=== PATIENT | female | born 1970 | race American Indian/Alaskan Native ===

== ENCOUNTER 2020-01-25 12:36 | Emergency (ER) | payer MEDICAID ==
--- NOTE | 2020-01-25 13:04 | EDM.PDOC ---
<Mark Troy - Last Filed: 01/25/20 13:44> ED HPI GENERAL MEDICAL PROBLEM - General Chief Complaint: Gastrointestinal Problem Stated Complaint: discomfort Time Seen by Provider: 01/25/20 12:59 Source of Information: Reports: Patient, RN, RN Notes Reviewed History Limitations: Reports: No Limitations - History of Present Illness INITIAL COMMENTS - FREE TEXT/NARRATIVE: 49 year old female presents to the ER with complaints of external hemorrhoids, has had them for 6 months, today pain became so severe she came to the ER. She has been using OTC hemorrhoid creams and tuck pads but haven't completely taken them away. She states she has had hemorrhoids in the past while but went away after childbirth. She has had bleeding with every bowel movement with noticeable bright red blood in the toilet. She has not tried to manually reduce hemorrhoids because pain is so bad and she cannot lie on her back or sit comfortably in a chair. She has not tried increasing fiber in her diet or changing her diet during the 6 months she has been dealing with the hemorrhoids. She denies diarrhea or constipation. Onset: Gradual, Other (been getting worse over the last 6 months) Duration: Getting Worse Location: Reports: Pelvis (anus) Quality: Reports: Ache, Sharp Severity: Moderate Improves with: Reports: None Worsens with: Reports: Other (bowel movements) Associated Symptoms: Reports: No Other Symptoms - Related Data Allergies Allergy/AdvReac Type Severity Reaction Status Date / Time acetaminophen [From [place]] Allergy Other Verified 01/25/20 12:58 hydrocodone [From [place]] Allergy Other Verified 01/25/20 12:58 Home Meds: Home Meds . [No Known Home Meds] 01/25/20 [History] ED ROS GENERAL - Review of Systems Review Of Systems: Comprehensive ROS is negative, except as noted in HPI. ED EXAM, GI/ABD - Physical Exam Exam: See Below Exam Limited By: No Limitations General Appearance: Alert, WD/WN, Moderate Distress Respiratory/Chest: No Respiratory Distress, Lungs Clear, Normal Breath Sounds, No Accessory Muscle Use, Chest Non-Tender Cardiovascular: Normal Peripheral Pulses, Regular Rate, Rhythm, No Edema, No Gallop, No JVD, No Murmur, No Rub GI/Abdominal Exam: Normal Bowel Sounds, Soft, Non-Tender, No Organomegaly, No Distention, No Abnormal Bruit, No Mass, Pelvis Stable (Female) Exam: Deferred Rectal (Female) Exam: Hemorrhoids (external hemorrhoids), Tenderness Extremities: Normal Inspection, Normal Range of Motion, Non-Tender, Normal Capillary Refill, No Pedal Edema Neurological: Alert, Oriented, CN II-XII Intact, Normal Cognition, Normal Gait, Normal Reflexes, No Motor/Sensory Deficits Psychiatric: Normal Affect, Normal Mood Skin Exam: Warm, Dry, Intact, Normal Color, No Rash Course - Vital Signs Last Recorded V/S: Last Vital Signs Temp 37.1 C 01/25/20 12:54 Pulse 65 01/25/20 12:54 Resp 18 01/25/20 12:54 BP 141/58 H 01/25/20 12:54 Pulse Ox 99 01/25/20 12:54 Departure - Departure Time of Disposition: 14:00 Disposition: Home, Self-Care 01 Condition: Good Clinical Impression: External hemorrhoids - Discharge Information *PRESCRIPTION DRUG MONITORING PROGRAM REVIEWED*: Not Applicable *COPY OF PRESCRIPTION DRUG MONITORING REPORT IN PATIENT NAKUL: Not Applicable Instructions: High-Fiber Diet, Constipation, Adult, [id number], Hemorrhoids, [id number], Surgical Procedures for Hemorrhoids, Nonsurgical Procedures for Hemorrhoids, Care After Forms: ED Department Discharge Additional Instructions: Rx: Hydrocortisone suppository 25 mg Apply hydrocortisone suppository twice daily for up to 14 days. You can also use ibuprofen for pain and inflammation as well. Increase fiber in diet with OTC fiber supplements. Increase water intake. Try to avoid straining with bowel movements and sitting on the toilet for an extended time. Follow-up with primary care provider for referral to GI if symptoms do not improve or get worse. Sepsis Event Note - Evaluation Sepsis Screening Result: No Definite Risk - Focused Exam Vital Signs: Vital Signs Temp Pulse Resp BP Pulse Ox 01/25/20 12:54 37.1 C 65 18 141/58 H 99 Date Exam was Performed: 01/25/20 Time Exam was Performed: 13:44 <Diomedes Gutierrez - Last Filed: 01/25/20 13:53> Course - Re-Assessments/Exams Free Text/Narrative Re-Assessment/Exam: 01/25/20 13:52 I have examined the patient. I have discussed findings and treatment plan with the PA student. I agree with the assessment and plan in the following students note. Sepsis Event Note - Focused Exam Date Exam was Performed: 01/25/20 Time Exam was Performed: 13:51
== END 2020-01-25 14:00 | disposition home or self-care (01) ==
LOC: DL.ED 12:36
DX: K64.4 Residual hemorrhoidal skin tags (principal); Z88.5 Allergy status to narcotic agent
CPT/HCPCS: 99282